=== PATIENT | female | born 1990 | race African-American/Black ===

== ENCOUNTER 2017-10-10 15:18 | Emergency (ER) | payer MEDICAID ==
[~2017-10-10] VITALS: Ht 152.4 cm; Wt 49.0 kg
[2017-10-10 15:30] VITALS: BP 97/69
--- NOTE | 2017-10-10 15:42 | Emergency Room Report ---
History of Present Illness General Chief Complaint: Skin Rash/Abscess Source: Patient Present Illness HPI Pt. presents to the ED c/o Itching, swelling, and erythema of posterior left thigh and medial left calf x 2 days. pt. reports swelling is significant. Pt. denies fevers, chills or swollen tender lymph nodes. Denies lesions/rashes elsewhere on the body. Denies new medications or body washes or creams. Denies swelling of the lips, tongue , throat or airway. Denies wheezing, or shortness of breath. Denies recent travel, recent illness or ill contacts. denies blisters, oral lesions, or sloughing of the skin Allergies: Coded Allergies: No Known Allergies (Unverified , 10/10/17) Patient History Past Medical History: see triage record Past Surgical History: none Pertinent Family History: none Last Menstrual Period: 7-7 Now: No Immunizations: UTD Reviewed Nursing Documentation: PMH: Agreed; PSxH: Agreed Nursing Documentation-PMH Past Medical History: No Stated History Review of Systems All Other Systems: negative except mentioned in HPI Physical Exam Vital Signs Date Time Temp Pulse Resp B/P (MAP) Pulse Ox O2 Delivery O2 Flow Rate FiO2 10/10/17 15:22 99.0 93 18 97/69 98 Room Air 99.0 Sp02 EP Interpretation: reviewed, normal General Appearance: no apparent distress, alert, GCS 15, non-toxic, mild distress Head: normocephalic, atraumatic Eyes: bilateral eye normal inspection, bilateral eye PERRL ENT: hearing grossly normal, no angioedema, normal voice Neck: full range of motion, other - no stridor Respiratory: chest non-tender, lungs clear, normal breath sounds, speaking full sentences Cardiovascular #1: regular rate, rhythm, normal capillary refill Rectal: deferred Genitourinary: normal inspection Musculoskeletal: back normal, gait/station normal, normal range of motion, non- tender Neurologic: alert, oriented x3, responsive, motor strength/tone normal, sensory intact, speech normal, grossly normal Psychiatric: judgement/insight normal Skin: normal color, warm/dry, well hydrated, other - insect bite to posterior left thigh 9 inches of surrounding erythema and induration, 3mm insect bit on the left medial calf with 1 inch of surrounding erythema and induration. no purulence. there is increased temperature to palpation. Medical Decision Making PA Attestation Dr. oro is my supervising Physician whom patient management has been discussed with. Diagnostic Impression: Primary Impression: Insect bite Qualified Codes: W57.XXXA - Bitten or stung by nonvenomous insect and other nonvenomous arthropods, initial encounter Additional Impression: Cellulitis Qualified Codes: L03.116 - Cellulitis of left lower limb ER Course Pt. presents to the ED c/o Itching, swelling, and erythema of posterior left thigh and medial left calf x 2 days. pt. reports swelling is significant. Pt. denies fevers, chills or swollen tender lymph nodes. Denies lesions/rashes elsewhere on the body. Denies new medications or body washes or creams. Denies swelling of the lips, tongue , throat or airway. Denies wheezing, or shortness of breath. Denies recent travel, recent illness or ill contacts. denies blisters, oral lesions, or sloughing of the skin Ddx considered but are not limited to cellulitis, scabies, insect bites, tic bites, spider bites, contact dermatitis, Drug reaction, allergic reaction, fungal infection, lice. Vital signs: are WNL, pt. is afebrile H&PE are most consistent with insect bite with moderate reaction and cellulitis. ORDERS: none required at this time, the diagnosis is clinical ED INTERVENTIONS: -Decadron 8mg IM - Benadryl -Ice Pack x 2 DISCHARGE: At this time pt. is stable for d/c to home. Will provide printed patient care instructions, and any necessary prescriptions. Care plan and follow up instructions have been discussed with the patient prior to discharge. Last Vital Signs Date Time Temp Pulse Resp B/P (MAP) Pulse Ox O2 Delivery O2 Flow Rate FiO2 10/10/17 15:22 99.0 93 18 97/69 98 Room Air 99.0 Disposition: HOME, SELF-CARE Condition: Stable Scripts Cephalexin* (KEFLEX*) 500 Mg Capsule 500 MG ORAL EVERY 12 HOURS for 7 Days, #14 CAP 0 Refills Prov: Nadya Neff 10/10/17 Hydroxyzine HCl (Hydroxyzine HCl) 25 Mg Tablet 25 MG ORAL FOUR TIMES A DAY, #20 TAB Prov: Nadya Neff 10/10/17 Patient Instructions: Insect Bite Additional Instructions: Take medications as directed. Follow up with a Primary Care Provider in 3-5 days, even if your symptoms have resolved. --Please review list of primary care clinics, if you do not already have a primary care provider Return sooner to ED if new symptoms occur, or current symptoms become worse. Do not drink alcohol, drive, or operate heavy machinery while taking Hydroxyzine as this may cause drowsiness. - Please note that this Emergency Department Report was dictated using [employer] security analyst technology software, occasionally this can lead to erroneous entry secondary to interpretation by the dictation equipment. Nadya Neff Oct 10, 2017 15:42
[2017-10-10] MEDS ORDERED: CEPHALEXIN500 MG ORAL (15:43)
[2017-10-10] MEDS ORDERED: ATARAX25 MG ORAL (15:43)
[2017-10-10] MEDS ORDERED: Dexamethasone 4mg/ml vial IM ONE (15:45)
[2017-10-10 16:02] VITALS: BP 97/69
== END 2017-10-10 16:05 | disposition home or self-care (01) ==
LOC: EMR 15:45
DX: S80.862A Insect bite (nonvenomous), left lower leg, initial encounter (principal); L03.116 Cellulitis of left lower limb; W57.XXXA Bitten or stung by nonvenomous insect and other nonvenomous arthropods, initial encounter; Y93.9 Activity, unspecified; Y92.9 Unspecified place or not applicable
CPT/HCPCS: 96372; 99283; J1100

== ENCOUNTER 2018-08-23 03:51 | Emergency (ER) | payer MEDICAID ==
[~2018-08-23] VITALS: Ht 154.9 cm; Wt 52.6 kg
[~2018-08-23 03:51] MED LIST: ATARAX25 MG ORAL; CEPHALEXIN500 MG ORAL
[2018-08-23] MEDS ORDERED: NKM (04:00)
[2018-08-23] MEDS ORDERED: Acetaminophen 500mg (ES) tab ORAL ONE (04:15)
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
[2018-08-23 04:35] VITALS: BP 124/87
[2018-08-23] MEDS ORDERED: ACETAMINOPHEN500 M3 ORAL (05:51)
[2018-08-23] MEDS ORDERED: IBUPROFEN600 MG ORAL (05:51)
[2018-08-23 05:58] VITALS: BP 133/82
[2018-08-23 06:00] VITALS: BP 133/82
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
== END 2018-08-23 06:01 | disposition home or self-care (01) ==
LOC: EMR 04:24
DX: S00.93XA Contusion of unspecified part of head, initial encounter (principal); S40.012A Contusion of left shoulder, initial encounter; Y04.2XXA Assault by strike against or bumped into by another person, initial encounter
CPT/HCPCS: 70450; 70486; 81025; 99284